=== PATIENT | male | born 1940 | race Two or more races ===

== ENCOUNTER 2023-03-28 23:13 | Inpatient (IN) | payer MEDICARE, MEDICAID ==
[~2023-03-28] VITALS: Ht 167.6 cm; Wt 80.2 kg
[2023-03-29 00:06] LABS: Basophils # (auto) 0.1 10 ^3/uL (0-0.2); Basophils % (auto) 0.7 % (0.0-2.0); Eosinophils # (auto) 0.5 10 ^3/uL (0-0.8); Eosinophils % (auto) 5.1 % (0.0-7.0); Hematocrit 45.3 % (41.0-53.0); Hemoglobin 14.6 g/dL (13.5-17.5); Lymphocytes # (auto) 1.9 10 ^3/uL (0.4-5.4); Lymphocytes % (auto) 17.8 % (10.0-50.0); Mean Corpuscular Hgb Conc. 32.3 g/dL (32.0-36.0); Mean Corpuscular Volume 86.8 fL (80.0-100.0); Monocytes # (auto) 0.9 10 ^3/uL (0-1.3); Neutrophils # (auto) 7.3 10 ^3/uL (1.6-8.6); Neutrophils % (auto) 68.4 % (37.0-80.0); Nucleated Red Blood Cells % 0.1 %; Red Blood Cells 5.22 10^6/uL (4.5-5.90); Red Cell Distribution Width 15.7 % (11.8-14.3); White Blood Cell 10.7 10^3/uL (4.4-10.8)
[2023-03-29 00:23] LABS: Alanine Aminotransferase 50 U/L (7-40); Albumin 4.1 g/dL (3.2-4.8); Alkaline Phosphatase 138 U/L (46-116); Anion Gap 6 (5-15); Aspartate Aminotransferase 41 U/L (13-40); BUN/Creatinine Ratio 11.9 (10.0-20.0); Blood Urea Nitrogen 13 mg/dL (9-23); Calcium 9.2 mg/dL (8.7-10.4); Carbon Dioxide 26 mmol/L (20-30); Chloride 104 mmol/L (98-107); Glucose 147 mg/dL (74-106); Magnesium 2.1 mg/dL (1.6-2.6); Potassium 4.4 mmol/L (3.5-5.1); Sodium 136 mmol/L (136-145)
[2023-03-29 00:24] LABS: Bilirubin, Total 0.8 mg/dL (0.2-1.0); Total Protein 8.7 g/dL (5.7-8.2)
[2023-03-29 00:41] LABS: Urine Bacteria NONE SEEN /hpf (None Seen); Urine Blood 1+ /uL (Negative); Urine Clarity Clear (Clear); Urine Color Yellow (Yellow); Urine Mucus FEW (None Seen); Urine Protein, UAD 1+ (Negative); Urine Specific Gravity 1.022 (1.001-1.035); Urine Urobilinogen Normal (Negative); Urine WBC 7 /hpf (0 - 3)
[2023-03-29 11:11] VITALS: O2SAT 94
[2023-03-29] MEDS: SODIUM CHLORIDE 0.9% 1,000 ML IV SCH (11:15)
[2023-03-29 15:00] LABS: Urine Bacteria NONE SEEN /hpf (None Seen); Urine Blood 1+ /uL (Negative); Urine Clarity Clear (Clear); Urine Color Yellow (Yellow); Urine Hyaline Cast FEW /lpf (0 - 2); Urine Mucus FEW (None Seen); Urine Protein, UAD 1+ (Negative); Urine Specific Gravity 1.024 (1.001-1.035); Urine Urobilinogen Normal (Negative); Urine WBC 4 /hpf (0 - 3)
[2023-03-29] MEDS: ACETAMINOPHEN 325 MG TAB PO PRN ×2 (15:28→22:00)
[2023-03-29] MEDS ORDERED: hydrALAZINE HCL 20 MG/ML VL IV ONE (22:15)
[2023-03-29 23:57] VITALS: BP 134/90; PULSE 98; RESP 20; TEMP 97.8; O2SAT 96
[2023-03-30] VITALS (7 sets, daily range): BP systolic 130–156; BP diastolic 57–86; PULSE 72–88; RESP 18–20; TEMP 97.5–98.3; O2SAT 93–98
[2023-03-30] MEDS: SODIUM CHLORIDE 0.9% 1,000 ML IV SCH ×2 (00:35→11:29)
[2023-03-30] MEDS ORDERED: PNEUMOCOCCAL VACC POLYS 25 MCG/0.5 ML VIAL IM ONE (02:30)
[2023-03-30] MEDS ORDERED: INFLUENZA QUAD 2023-2024 0.5 ML SYRG IM ONE (02:30)
[2023-03-30] MEDS: ACETAMINOPHEN 325 MG TAB PO PRN ×2 (05:44→21:20)
[2023-03-30 06:17] LABS: Basophils # (auto) 0.1 10 ^3/uL (0-0.2); Basophils % (auto) 1.1 % (0.0-2.0); Eosinophils # (auto) 0.5 10 ^3/uL (0-0.8); Eosinophils % (auto) 5.8 % (0.0-7.0); Hematocrit 41.8 % (41.0-53.0); Hemoglobin 13.6 g/dL (13.5-17.5); Lymphocytes # (auto) 1.9 10 ^3/uL (0.4-5.4); Lymphocytes % (auto) 20.6 % (10.0-50.0); Mean Corpuscular Hemoglobin 27.8 pg (28.0-32.0); Mean Corpuscular Hgb Conc. 32.5 g/dL (32.0-36.0); Mean Corpuscular Volume 85.5 fL (80.0-100.0); Monocytes % (auto) 10.5 % (0.0-12.0); Neutrophils # (auto) 5.8 10 ^3/uL (1.6-8.6); Nucleated Red Blood Cells % 0.1 %; Red Cell Distribution Width 15.1 % (11.8-14.3); White Blood Cell 9.3 10^3/uL (4.4-10.8)
[2023-03-30 06:21] LABS: Alanine Aminotransferase 42 U/L (7-40); Albumin 3.7 g/dL (3.2-4.8); Alkaline Phosphatase 116 U/L (46-116); Anion Gap 9 (5-15); Aspartate Aminotransferase 38 U/L (13-40); Blood Urea Nitrogen 22 mg/dL (9-23); Calcium 8.7 mg/dL (8.7-10.4); Carbon Dioxide 25 mmol/L (20-30); Chloride 105 mmol/L (98-107); Glucose 119 mg/dL (74-106); Potassium 4.2 mmol/L (3.5-5.1); Sodium 139 mmol/L (136-145); Total Protein 7.7 g/dL (5.7-8.2)
[2023-03-30] MEDS ORDERED: hydrALAZINE HCL 20 MG/ML VL IV PRN (10:30)
[2023-03-30] MEDS: ENOXAPARIN SOD 40 MG/0.4 ML SYRINGE SC SCH (11:16)
[2023-03-31] VITALS (8 sets, daily range): BP systolic 120–162; BP diastolic 72–85; PULSE 78–99; RESP 18–20; TEMP 97.9–99; O2SAT 95–98
[2023-03-31] MEDS: SODIUM CHLORIDE 0.9% 1,000 ML IV SCH (03:15)
[2023-03-31] MEDS: ACETAMINOPHEN 325 MG TAB PO PRN ×2 (05:45→12:16)
[2023-03-31 09:10] LABS: Hepatitis B Surface Antigen Negative (Negative)
[2023-03-31 09:31] LABS: Hepatitis A Ab IgM Negative; Hepatitis B Core IgM Negative
[2023-03-31 09:32] LABS: Hepatitis C Antibody Negative (Negative)
[2023-03-31] MEDS: GABAPENTIN 100 MG CAP PO SCH ×2 (11:01→22:40)
[2023-03-31] MEDS: ENOXAPARIN SOD 40 MG/0.4 ML SYRINGE SC SCH (11:02)
[2023-03-31] MEDS ORDERED: LACTULOSE 20Gm/30ML SOLN PO ONE (17:00)
[2023-03-31] MEDS ORDERED: DOCUSATE SOD 100 MG CAP PO ONE (17:00)
[2023-04-01] MEDS: ACETAMINOPHEN 325 MG TAB PO PRN ×2 (04:50→12:37)
[2023-04-01 05:00] VITALS: BP 132/77; PULSE 94; RESP 19; TEMP 99; O2SAT 98
[2023-04-01 08:00] VITALS: PULSE 82; RESP 17; O2SAT 96
[2023-04-01] MEDS: GABAPENTIN 100 MG CAP PO SCH (09:39)
[2023-04-01] MEDS: ENOXAPARIN SOD 40 MG/0.4 ML SYRINGE SC SCH (09:39)
[2023-04-01] MEDS ORDERED: DOCUSATE SOD 100 MG CAP PO PRN (10:00)
[2023-04-01 13:21] VITALS: BP 136/69; PULSE 78; RESP 17; TEMP 98.2; O2SAT 96
[2023-04-01] MEDS ORDERED: GAB100C PO (14:43)
== END 2023-04-01 19:00 | disposition home or self-care (01) | DRG 347 ==
LOC: ER 23:13 → OVERFLOW 03-29 11:13 → CENTRAL 03-29 22:35
PROVIDERS: ADMIT Nurse Practitioner Family; ATTEND Internal Medicine
DX: M48.061 Spinal stenosis, lumbar region without neurogenic claudication (principal); B02.9 Zoster without complications; E78.5 Hyperlipidemia, unspecified; R29.6 Repeated falls; R74.01 Elevation of levels of liver transaminase levels; R73.9 Hyperglycemia, unspecified; R20.2 Paresthesia of skin; G62.9 Polyneuropathy, unspecified; Z79.899 Other long term (current) drug therapy; Z23 Encounter for immunization
CPT/HCPCS: 36415; 70450; 70551; 71045; 72146; 72148; 73562; 76705; 80053; 80074; 81001; 82550; 83036; 83735; 83880; 84484; 85025; 93005; 93970; 97110; 97116; 97163; 97530; G0378